=== PATIENT | male | born 1985 | race Caucasian/White ===

== ENCOUNTER 2021-02-06 12:18 | Emergency (ER) | payer OTHER ==
[~2021-02-06] VITALS: Ht 180.3 cm; Wt 88.0 kg
[2021-02-06 12:56] LABS: BASOPHILS % (AUTO) 0 % (0-1); EOSINOPHILS % (AUTO) 1 % (1-7); LYMPHOCYTES % (AUTO) 21 % (22-44); MEAN CORPUSCULAR HEMOGLOBIN 29.4 pg (27.5-34.5); MEAN CORPUSCULAR HGB CONC 33.8 g/dL (33.2-36.2); MEAN PLATELET VOLUME 8.9 fL (7.4-10.4); MONOCYTES % (AUTO) 7 % (2-9); NEUTROPHILS % (AUTO) 71 % (42-75); PLATELET COUNT 214 x10^3/uL (130-400); RED BLOOD COUNT 4.77 x10^6/uL (4.38-5.82)
[2021-02-06 13:03] LABS: ALBUMIN 3.8 g/dL (3.4-5.0); ANION GAP 7 mmol/L (5-15); CALCIUM 8.8 mg/dL (8.5-10.1); CHLORIDE 110 mmol/L (98-107); CREATININE 1.05 mg/dL (0.7-1.3)
[2021-02-06] MEDS ORDERED: KETOROLAC 30 MG/1 ML IM ONE (14:30)
[2021-02-06] MEDS ORDERED: KETOROLAC 30 MG/1 ML ONE (15:11)
[2021-02-06] MEDS ORDERED: MORPHINE SULFATE 4 MG/ML, 1ML ONE (16:38)
[2021-02-06] MEDS ORDERED: MORPHINE SULFATE 4 MG/ML, 1ML IVPush ONE (17:00)
--- NOTE | 2021-02-06 17:23 | NUR ---
PT BACK FROM RADS. DR SALGUERO ADVISING PT NEEDS TO LAY FLAT 3-4 HOURS.
[2021-02-06 18:01] LABS: GLUCOSE, CSF 62 mg/dL (40-80); TOTAL PROTEIN,CSF 27 mg/dL (15-45)
--- NOTE | 2021-02-06 19:11 | NUR ---
RECEIVED REPORT FROM ANIKET MCKEON. TRANSFER OF CARE.
--- NOTE | 2021-02-06 19:13 | NUR ---
Patient is resting comfortably in bed. Bed in lowest, rails engaged, call light on lap. Vital Signs within normal limits. WCTM.
--- NOTE | 2021-02-06 19:14 | NUR ---
PT CAN GET UP FROM LAYING ON BACK
[2021-02-06 19:46] VITALS: BP 120/82
== END 2021-02-06 19:49 | disposition home or self-care (01) ==
LOC: ED 12:30
DX: S16.1XXA Strain of muscle, fascia and tendon at neck level, initial encounter (principal); R51.9 Headache, unspecified; F90.9 Attention-deficit hyperactivity disorder, unspecified type; X58.XXXA Exposure to other specified factors, initial encounter; Y93.89 Activity, other specified; Y92.89 Other specified places as the place of occurrence of the external cause; Y99.8 Other external cause status
CPT/HCPCS: 36415; 62328; 80048; 82040; 82945; 84157; 85025; 87070; 87205; 89051; 96372; 96374; 99285; J1885; J2270